=== PATIENT | female | born 1985 | race Caucasian/White ===

== ENCOUNTER → 2020-06-12 10:17 | Outpatient (BNVA) | payer SELFPAY | PROVIDERS: Visit Provider Family Medicine | DX: Z13.6 Encounter for screening for cardiovascular disorders (principal); Z13.1 Encounter for screening for diabetes mellitus; R45.0 Nervousness; Z83.3 Family history of diabetes mellitus; N64.52 Nipple discharge | CPT/HCPCS: 80053; 80061; 83036; 84146 ==

== ENCOUNTER 2021-07-18 16:00 | Emergency (ER) | payer SELFPAY ==
[2021-07-18 16:08] VITALS: BP 152/94; PULSE 118; RESP 20; TEMP 36.9; O2SAT 98
--- NOTE | 2021-07-18 16:20 | ED_ITS ---
HPI - Extremity Problem General: Chief complaint: Extremity Problem,Nontraumatic Stated complaint: Redness and burning in Rt Leg Time Seen by Provider: 07/18/21 16:07 History of Present Illness: Patient presents with redness to the right sawyer. This started yesterday and has gotten slightly larger in area size. He is tender to the touch. Patient denies any recent injury. Denies any other illness presently. Associated symptoms: Deny chest pain, fever(s) or rash Review of Systems Const: Denies: fever(s), chills or body aches Eyes: Denies: eye discomfort ENMT: Denies: throat pain Card: Denies: chest pain Resp: Denies: dyspnea GI: Denies: abdominal pain, nausea or vomiting Skin/Breast: Reports: erythema (Right sawyer since yesterday) and skin tenderness; Denies: rash Neuro: Denies: headache(s) Psych: Denies: depression or suicidal ideation PFS ED PFSH: Medical History (Updated 07/18/21 @ 16:20 by PATRICE Ariza) ADHD Anxiety Bipolar 1 disorder Depression Family history of breast cancer Psychiatric care PTSD (post-traumatic stress disorder) Schizophrenia Family History Family/Other Cancer Breast cancer Social History Smoking and tobacco status: former smoker Alcohol intake: former Year of sobriety/quit date alcohol: 2020 Caregiver/support person: Yes Physical Exam Const: COMMON NORMALS: no acute distress, patient oriented x3 and alert HENMT: COMMON NORMALS: normocephalic and external ears normal HEAD & SCALP: normocephalic EXTERNAL EAR: Yes external ears normal Eye: COMMON NORMALS: EOMs intact bilaterally Neck/C-Spine: COMMON NORMALS: no JVD Resp: COMMON NORMALS: normal respiratory effort and No use of accessory muscles Cardio: COMMON NORMALS: no JVD RATE: tachycardic GI: INSPECTION: Yes normal to inspection Extremity: COMMON NORMALS: normal to inspection and full ROM Neuro: COMMON NORMALS: patient oriented x3 SENSORIUM/ORIENTATION: Yes alert Psych: COMMON NORMALS: mental status grossly normal Skin: COMMON NORMALS: no rashes or lesions noted GENERAL SKIN EXAM: no rashes or lesions noted OTHER: Slight area of redness to right sawyer consistent with superficial thro mbophlebitis. There is no swelling to the calf or other areas. This is in the lower aspect of sawyer is probably vertically 4 inches long by 1/2 inches wide blanches to touch and is tender. Course Vital Signs: Vital signs: Vital Signs Temperature 98.4 F 07/18/21 16:08 Pulse Rate 118 H 07/18/21 16:08 Respiratory Rate 20 H 07/18/21 16:08 Blood Pressure 152/94 07/18/21 16:08 Pulse Oximetry 98 07/18/21 16:08 MDM - Extremity (Nontraumatic) Medical Decision Making Patient has redness to her right sawyer consistent with a superficial thrombophlebitis presentation. Patient with no known injury and no swelling to the area. Area is tender to touch. Discharge Plan Discharge Patient Disposition: Home Clinical Impression: Superficial thrombophlebitis Condition: Stable Prescriptions: New prednisone 20 mg tablet 20 mg PO DAILY Qty: 7 0RF cephalexin 500 mg capsule 500 mg PO Q8H 7 Days Qty: 21 0RF No Action buspirone 10 mg tablet 10 mg PO BID 30 Days Qty: 60 2RF Rx Instructions: 340B lithium carbonate 300 mg capsule 300 mg PO BID 30 Days Qty: 60 2RF Rx Instructions: 340B prednisone 20 mg tablet 40 mg PO .q AM 5 Days Qty: 10 0RF cyclobenzaprine 5 mg tablet 10 mg PO TID MDD 6 tabs PRN (Reason: muscle spasm) Qty: 30 1RF Rx Instructions: 1 or 2 tabs as needed Discharge Orders: Discharge ED (Routine); Ordered 07/18/21 Ordered By: Dimitri Mosqueda Discharge Diet: Usual diet Discharge Activity: Resume usual activity Patient Instructions: Superficial Thrombophlebitis (ED) Activity Restrictions/Additional Instructions: Follow-up with medical provider as directed. Take medications as prescribed. Return to the ER or your medical provider if condition worsens. Please read and understand discharge instructions. If any questions ask please. Coding Level of Care Code ED [employer]r for [employer] Fwd Exam Comprehensive
--- NOTE | 2021-07-18 17:05 | USR_ITS ---
PROCEDURE INFORMATION: Exam: US Duplex Right Lower Extremity Veins, Limited Exam date and time: 07/18/2021 5:21 PM Age: 35 years old Clinical indication: Pain; Leg, lower; Right; Additional info: Redness and swelling, R/O dvt TECHNIQUE: Imaging protocol: Real-time Duplex ultrasound of the Right Lower Extremity with 2-D aguilera scale, color Doppler flow and spectral waveform analysis with image documentation. Limited exam was focused on the right lower extremity veins. COMPARISON: No relevant prior studies available. FINDINGS: Right deep veins: Unremarkable. The common femoral, femoral, proximal profunda femoral and popliteal veins are patent without thrombus. Normal Doppler waveforms. Normal compressibility and/or augmentation response. Right superficial veins: Unremarkable. Saphenofemoral junction is patent without thrombus. Soft tissues: Unremarkable. US/[place] [id number] IMPRESSION: No evidence of deep vein thrombosis.
[2021-07-18] MEDS: ibuprofen 600 mg Tablet PO (17:56)
[2021-07-18] MEDS: cephALEXin 500 mg Capsule PO (17:56)
[2021-07-18 18:05] VITALS: BP 139/92; PULSE 105; O2SAT 95
== END 2021-07-18 18:06 | disposition home or self-care (01) ==
PROVIDERS: Emergency Provider Nurse Practitioner Family
DX: I80.01 Phlebitis and thrombophlebitis of superficial vessels of right lower extremity (principal); Z87.891 Personal history of nicotine dependence; M79.89 Other specified soft tissue disorders; M79.661 Pain in right lower leg
CPT/HCPCS: 93971; 99283

== ENCOUNTER 2023-04-20 10:51 | Emergency (ER) | payer SELFPAY ==
[2023-04-20 10:52] VITALS: BP 145/102; PULSE 94; RESP 16; TEMP 36.8; O2SAT 100; BMI 45.7
[2023-04-20 11:26] LABS: Basophils % 0.4 %; Eosinophils # 0.1 10^3/uL (0.0-0.8); Eosinophils % 1.2 %; Hematocrit 43.1 % (36-47); Lymphocytes # 3.6 10^3/uL (0.8-4.8); Lymphocytes % 32.3 %; Mean Corpuscular HGB Conc 32.3 g/dL (30-55); Mean Corpuscular Hemoglobin 28.7 pg (27-33); Mean Corpuscular Volume 88.9 fl (85-98); Mean Platelet Volume 9.5 fL (7.4-10.4); Monocytes # 0.6 10^3/uL (0.2-0.9); Monocytes % 5.3 %; Neutrophils # 6.75 10^3/uL (1.8-7.7); Neutrophils % 60.4 %; Nucleated Red Blood Cells % 0 %; Platelet Count 382 10^3/cmm (157-399); Red Blood Count 4.85 10^6/uL (3.85-5.65); Red Cell Distribution Width 13.6 % (12.1-15.1); White Blood Count 11.15 10^3/uL (3.29-11.43)
--- NOTE | 2023-04-20 11:28 | W.ED.ABDPA2 ---
HPI - Abdominal Pain General: Chief Complaint: Abdominal Pain Stated Complaint: abd pain Time Seen by Provider: 04/20/23 11:21 Source: patient Mode of arrival: ambulatory History of Present Illness: 37-year-old female reports right upper quadrant pain for the last week no fever sweats chills no dysuria urgency or frequency nausea and vomiting at times. She states it actually gets better after vomiting. She denies any hematemesis or coffee-ground emesis. MD elicited complaint: abdominal pain Onset (ago): week(s) Pain Consistency: intermittent Location: RUQ Severity: moderate Quality: cramping Exacerbating factors: eating Relieving factors: vomiting Associated Symptoms: Reports GI cramping, nausea, poor appetite and vomiting; Denies anorexia, belching, bloating, change in bowel habits, change in stool character, chills, coffee ground emesis, constipation, diarrhea, dyspepsia, dysuria, excessive flatus, fever(s), heartburn, hematochezia, hematuria, hematemesis, fecal incontinence, loose stools, melena, syncope and other Related Data: Date of Last Menstrual Period: 04/12/23 Review of Systems Const: Denies: fever(s) or chills Card: Denies: chest pain or syncope Resp: Denies: dyspnea GI: Reports: nausea, vomiting and GI cramping; Denies: abdominal pain, hematemesis, coffee ground emesis, heartburn, diarrhea, constipation, bloating, belching, excessive flatus, fecal incontinence, change in bowel habits, change in stool character, hematochezia, melena or other : Denies: dysuria, urinary frequency, urinary urgency or hematuria Musc: Denies: neck pain or back pain Skin/Breast: Denies: rash PFSH ED PFSH: Medical History Psychiatric care Family history of breast cancer PTSD (post-traumatic stress disorder) ADHD Schizophrenia Depression Bipolar 1 disorder Anxiety Family History Family/Other Cancer Breast cancer Social History Smoking and tobacco/nicotine status: former use of tobacco/nicotine Alcohol intake: former Year of sobriety/quit date alcohol: 2020 Substance/Drug Use: former Date of last use: 11/2019 Caregiver/support person: Yes Female Reproductive History: Date of last menstrual period: 04/12/23 Physical Exam Const: COMMON NORMALS: no acute distress GENERAL APPEARANCE: cooperative and comfortable ORIENTATION/CONSCIOUSNESS: Yes awake, Yes oriented to person, Yes oriented to place and Yes oriented to time HENMT: COMMON NORMALS: normocephalic, atraumatic and hearing grossly normal bilaterally HEAD & SCALP: normocephalic and atraumatic Resp: COMMON NORMALS: normal respiratory effort, No retractions, No use of accessory muscles and clear to auscultation bilaterally AUSCULTATION: clear to auscultation bilaterally Cardio: COMMON NORMALS: regular rate, regular rhythm and No murmurs present (Cardio) RATE: regular rate RHYTHM: regular rhythm GI: COMMON NORMALS: Soft to palpation and No hepatosplenomegaly present AUSCULTATION: Yes normoactive bowel sounds PALPATION: Yes Soft to palpation, No Tenderness to palpation present (GI), No Guarding due to palpation present (GI) and Yes No hepatosplenomegaly present Extremity: COMMON NORMALS: normal to inspection, capillary refill normal, no clubbing, cyanosis or edema, no calf tenderness and no pedal edema Neuro: SENSORIUM/ORIENTATION: Yes oriented to person, Yes oriented to place and Yes oriented to time Skin: COMMON NORMALS: no rashes or lesions noted GENERAL SKIN EXAM: no rashes or lesions noted Course Vital Signs: Vital signs: Vital Signs Temperature 98.3 F 04/20/23 10:52 Pulse Rate 94 04/20/23 10:52 Respiratory Rate 16 04/20/23 10:52 Blood Pressure 145/102 04/20/23 10:52 Pulse Oximetry 100 04/20/23 10:52 Oxygen Delivery Me thod Room Air 04/20/23 10:52 MDM - Abdominal Pain Medical Decision Making Alk phos very slightly elevated other liver functions and T. bili are normal white count normal there is some hepatic congestion they state is consistent with possible hepatitis. Patient not jaundiced. She may have a viral infection triggering this. She is somewhat improved. We are going to give her some Protonix. If she has persistent symptoms follow-up with primary care. Hepatitis panel not done at this time because there is no significant elevation of liver enzymes. Medical Records I reviewed the patient's medical records. Lab Data I reviewed the patient's lab results. 04/20/23 11:12 04/20/23 11:12 Labs/Radiology: Laboratory Results WBC 11.15 10^3/uL (3.29-11.43) 04/20/23 11:12 RBC 4.85 10^6/uL (3.85-5.65) 04/20/23 11:12 Hgb 13.90 g/dL (11.27-16.99) 04/20/23 11:12 Hct 43.1 % (36-47) 04/20/23 11:12 MCV 88.9 fl (85-98) 04/20/23 11:12 MCH 28.7 pg (27-33) 04/20/23 11:12 MCHC 32.3 g/dL (30-55) 04/20/23 11:12 RDW 13.6 % (12.1-15.1) 04/20/23 11:12 Plt Count 382 10^3/cmm (157-399) 04/20/23 11:12 MPV 9.5 fL (7.4-10.4) 04/20/23 11:12 Neut % (Auto) 60.4 % 04/20/23 11:12 Lymph % (Auto) 32.3 % 04/20/23 11:12 [place] % (Auto) 5.3 % 04/20/23 11:12 Eos % (Auto) 1.2 % 04/20/23 11:12 Baso % (Auto) 0.4 % 04/20/23 11:12 Neut # (Auto) 6.75 10^3/uL (1.8-7.7) 04/20/23 11:12 Lymph # (Auto) 3.6 10^3/uL (0.8-4.8) 04/20/23 11:12 [place] # (Auto) 0.6 10^3/uL (0.2-0.9) 04/20/23 11:12 Eos # (Auto) 0.1 10^3/uL (0.0-0.8) 04/20/23 11:12 Baso # (Auto) 0.0 10^3/uL (0.0-0.1) 04/20/23 11:12 Nucleated RBC % (auto) 0 % 04/20/23 11:12 Nucleated RBCs # 0.0 /100WBC 04/20/23 11:12 Sodium 139 mmol/L (136-145) 04/20/23 11:12 Potassium 4.1 mmol/L (3.5-5.1) 04/20/23 11:12 Chloride 101 mmol/L (98-107) 04/20/23 11:12 Carbon Dioxide 26 mmol/L (22-29) 04/20/23 11:12 Anion Gap 16.1 (5-19) 04/20/23 11:12 BUN 8 mg/dL (6-20) 04/20/23 11:12 Creatinine 0.6 mg/dL (0.5-0.9) 04/20/23 11:12 GFR Calculation 113.8 mL/min (90-130) 04/20/23 11:12 Glucose 90 mg/dL (65-115) 04/20/23 11:12 Calculated Osmolality 286 mOsm/kg (285-295) 04/20/23 11:12 Calcium 9.0 mg/dL (8.5-10.5) 04/20/23 11:12 Total Bilirubin 0.2 mg/dL (0.15-1.2) 04/20/23 11:12 AST 17 U/L (0-32) 04/20/23 11:12 ALT 22 U/L (0-33) 04/20/23 11:12 Alkaline Phosphatase 111 U/L (35-105) H 04/20/23 11:12 Total Protein 8.0 g/dL (6.6-8.7) 04/20/23 11:12 Albumin 3.9 g/dL (3.5-5.2) 04/20/23 11:12 Globulin 4.1 g/dL (1.3-4.6) 04/20/23 11:12 Lipase 25 U/L (13-60) 04/20/23 11:12 HCG, Qual Negative (Negative) 04/20/23 11:12 Urine Color Yellow (Yellow) 04/20/23 12:05 Urine Appearance Sl hazy (CLEAR) A 04/20/23 12:05 Urine pH 7 (5-7) 04/20/23 12:05 Ur Specific [place] 1.010 (1.005-1.030) 04/20/23 12:05 Urine Protein Neg (Negative) 04/20/23 12:05 Urine Glucose (UA) Norm (Normal) 04/20/23 12:05 Urine Ketones Negative (Negative) 04/20/23 12:05 Urine Blood Neg (Negative) 04/20/23 12:05 Urine Nitrate Negative (Negative) 04/20/23 12:05 Urine Bilirubin Neg (Negative) 04/20/23 12:05 Urine Urobilinogen Neg mg/dL (Negative) 04/20/23 12:05 Ur Leukocyte Esterase Negative (Negative) 04/20/23 12:05 Urine RBC 0-4 /hpf (0-2) H 04/20/23 12:05 Urine WBC 0-4 /hpf (0-5) H 04/20/23 12:05 Ur Squamous Epith Cells 5-10 /hpf (0-5) H 04/20/23 12:05 Amorphous Sediment Not Reportable 04/20/23 12:05 Urine Bacteria 1+ /hpf (NONE) H 04/20/23 12:05 Urine Mucus Trace /hpf 04/20/23 12:05 All radiology interpretation(s) finalized by discharge Discharge Plan Discharge Patient Disposition: Home Clinical Impression: Abdominal pain Condition: Stable Prescriptions: New Protonix 40 mg tablet,delayed release (DR/EC) 40 mg PO BID 10 Days Qty: 45 0RF Rx Instructions: 1 p.o. twice daily x 14 days then 1 daily No Action buspirone 10 mg tablet 10 mg PO BID 30 Days Qty: 60 2RF Rx Instructions: 340B lithium carbonate 300 mg capsule 300 mg PO BID 30 Days Qty: 60 2RF Rx Instructions: 340B prednisone 20 mg tablet 40 mg PO .q AM 5 Days Qty: 10 0RF cyclobenzaprine 5 mg tablet 10 mg PO TID MDD 6 tabs PRN (Reason: muscle spasm) Qty: 30 1RF Rx Instructions: 1 or 2 tabs as needed prednisone 20 mg tablet 20 mg PO DAILY Qty: 7 0RF Discharge Orders: Discharge ED (Routine); Ordered 04/20/23 Ordered By: Jesus Benson Discharge Diet: Usual diet Discharge Activity: Resume usual activity Patient Instructions: Diet for Stomach Ulcers and Gastritis (ED), Abdominal Pain (ED), Opioid Safety, Pain Management Activity Restrictions/Additional Instructions: Thank you for choosing [facility] for your healthcare needs today. Please realize this is an emergency room and that we are providing you with a medical screening exam and this may not be complete and all inclusive of all the testing and or work up that you may need to determine your ailment or severity of your illness. It is very important that you follow up as instructed or that you return to the Emergency Department should you have concerns or if your condition changes or worsens in any way. You are seen in the emergency room for abdominal pain given your description of the pain suspect this is related to your stomach. I recommend you start pantoprazole twice daily. Liver functions done today did not show any clinically significant abnormality had a very mild elevation of your alk phosphatase which is not likely to be clinically significant. Your urine and white count did not show any clinically significant abnormalities. 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
[2023-04-20 11:46] LABS: HCG, Serum Qual Negative (Negative)
[2023-04-20 11:52] LABS: Alanine Aminotransferase 22 U/L (0-33); Albumin Level 3.9 g/dL (3.5-5.2); Alkaline Phosphatase 111 U/L (35-105); Anion Gap 16.1 (5-19); Aspartate Amino Transferase 17 U/L (0-32); Blood Urea Nitrogen 8 mg/dL (6-20); Carbon Dioxide 26 mmol/L (22-29); Chloride 101 mmol/L (98-107); Globulin 4.1 g/dL (1.3-4.6); Glomerular Filtration Rate 113.8 mL/min (90-130); Glucose 90 mg/dL (65-115); Lipase 25 U/L (13-60); Osmolality Calculated 286 mOsm/kg (285-295); Potassium 4.1 mmol/L (3.5-5.1); Sodium 139 mmol/L (136-145); Total Bilirubin 0.2 mg/dL (0.15-1.2)
--- NOTE | 2023-04-20 12:04 | US_ITS ---
WS: [id number] ULTRASOUND ABDOMEN LIMITED CLINICAL INFORMATION: Right upper quadrant abdominal pain COMPARISON: None. FINDINGS: Liver Size: Normal. Craniocaudal length: 11.9 cm. Echogenicity: Coarse Surface nodularity: None. Mass (size and location): None. Bile ducts Intrahepatic ducts: Normal. Common bile duct diameter: 0.4 cm. Gallbladder Normal. Gallstones: None. Gallbladder sludge: None. Gallbladder wall thickening: None. Pericholecystic fluid: None. Sonographic [place] sign: Absent. Pancreas Not well visualized Right kidney: Normal. Hydronephrosis: None. Size: 10.8 cm x 4.4 cm x 5.0 cm. Abdominal aorta and IVC Visualized portions are normal. Ascites: None. IMPRESSION: 1. Mild diffuse fatty infiltration of the liver. Recommend correlation with liver function tests. Ec hogenic portal triads nonspecific but can be seen with hepatitis. 2. Normal gallbladder. 3. Normal common bile duct. 4. No hydronephrosis in the RIGHT kidney.
[2023-04-20 12:52] LABS: Add Urine Microscopic? YES; Bilirubin Urine Neg (Negative); Blood Urine Neg (Negative); Glucose Urine UA Norm (Normal); Ketones Urine Negative (Negative); Leukocyte Esterase Urine Negative (Negative); Nitrate Urine Negative (Negative); Protein Urine Neg (Negative); Urine Appearance SL Hazy (CLEAR); Urine Color Yellow (Yellow); Urobilinogen Urine Neg (Negative); pH Urine 7 (5-7)
[2023-04-20 12:53] LABS: WBC Urine 0-4 /hpf (0-5)
[2023-04-20 12:54] LABS: Add Urine Culture? No; Bacteria Urine 1+ /hpf; Mucus Urine TRACE /hpf; RBC Urine 0-4 /hpf (0-2)
== END 2023-04-20 15:16 | disposition home or self-care (01) ==
PROVIDERS: Emergency Medicine; Emergency Provider Family Medicine
DX: R10.11 Right upper quadrant pain (principal); Z87.891 Personal history of nicotine dependence
CPT/HCPCS: 36415; 76705; 80053; 81001; 83690; 84703; 85025; 99284

== ENCOUNTER 2023-06-29 11:46 | Outpatient (CLI) | payer MEDICAID, SELFPAY ==
--- NOTE | 2023-06-29 11:48 | MM_ITS ---
WS: [id number] BILATERAL 3D TOMOSYNTHESIS DIGITAL DIAGNOSTIC MAMMOGRAPHY WITH CAD CLINICAL INFORMATION: BR PAIN/POLY BR DISCHARGE HISTORY: Bilateral breast discharge. Kartik color. COMPARISON: None. TECHNIQUE: Bilateral CC, MLO, and ML views. FINDINGS: Scattered fibroglandular densities bilaterally. No suspicious focal mass, asymmetry, calcifications, or architectural distortion. Bilateral ultrasoun d is pending for breast discharge. ULTRASOUND BREAST BILATERAL TECHNIQUE: Ultrasound bilateral breast focused area of concern. CLINICAL INFORMATION: BR PAIN/POLY BR DISCHARGE FINDINGS: RIGHT BREAST: Ultrasound RIGHT breast subareolar. Incidental mild to moderate ductal ectasia. No susp icious lesions. LEFT BREAST: Ultrasound LEFT breast subareolar. Prominent ductal ectasia with internal debris. No vis ualized intraductal lesions. No suspicious lesions to target for biopsy. Recommend annual screen mammography age 40 IMPRESSION: MM/[place] [id number] BI-RADS: 2-Benign FOLLOW UP: Age 42 Recommend annual screening mammography age 42
== END 2023-06-29 11:47 | disposition home or self-care (01) ==
LOC: RAD 11:46
PROVIDERS: Visit Provider Advanced Practice Midwife
DX: N64.4 Mastodynia (principal); N60.42 Mammary duct ectasia of left breast; N60.41 Mammary duct ectasia of right breast
CPT/HCPCS: 76642; 77062; G0279

== ENCOUNTER → 2023-07-11 07:49 | Outpatient (BNVA) | payer MEDICAID, SELFPAY | PROVIDERS: Visit Provider Obstetrics & Gynecology | DX: R87.619 Unspecified abnormal cytological findings in specimens from cervix uteri (principal) | CPT/HCPCS: 81025; 88305 ==

== ENCOUNTER 2025-02-24 01:50 | Emergency (ER) | payer MEDICAID, SELFPAY ==
[2025-02-24 02:14] VITALS: BP 124/85; PULSE 105; RESP 20; TEMP 36.5; O2SAT 99; BMI 31.1
[2025-02-24 02:21] VITALS: BP 124/85; PULSE 105; RESP 20; TEMP 36.5; O2SAT 99
[2025-02-24 02:36] LABS: Glucose Urine UA Negative (Normal); Nitrate Urine Negative (Negative); Specific Gravity, Urine 1.024 (1.005-1.030)
[2025-02-24 02:41] LABS: Add Urine Microscopic? YES
--- NOTE | 2025-02-24 02:46 | CTR_ITS ---
PROCEDURE INFORMATION: Exam: CT Abdomen And Pelvis Without Contrast Exam date and time: 02/24/2025 2:53 AM Age: 39 years old Clinical indication: Abdominal pain; Right; RT flank pain with hematuria TECHNIQUE: Imaging protocol: Computed tomography of the abdomen and pelvis without contrast. Radiation optimization: All CT scans at this facility use at least one of these dose optimization techniques: automated exposure control; mA and/or kV adjustment per patient size (includes targeted exams where dose is matched to clinical indication); or iterative reconstruction. COMPARISON: US gall bladder [id number] 04/20/2023 11:42 AM RADIATION DOSE METRICS: Total DLP (mGy-cm): 685.31 FINDINGS: Liver: Normal. No mass. Gallbladder and biliary ducts: Normal. No calcified stones. No ductal dilation. Pancreas: Normal. No ductal dilation. Spleen: Normal. No splenomegaly. Adrenal glands: Normal. No mass. Kidneys and ureters: Right collecting system hydroureteronephrosis. 2 mm right distal ureter stone. Right renal parenchyma edema. Additional punctate nonobstructing bilateral kidney stones measuring 2 mm diameter each. Stomach and bowel: Unremarkable. No obstruction. No mucosal thickening. Appendix: Normal appendix. Intraperitoneal space: Unremarkable. No free air. No significant fluid collection. Vasculature: Unremarkable. No abdominal aortic aneurysm. Lymph nodes: Unremarkable. No enlarged lymph nodes. Urinary bladder: Unremarkable as visualized. Reproductive: Unremarkable as visualized. Bones/joints: Unremarkable. No acute fracture. Soft tissues: Unremarkable. CT/CT kidney stone [id number] IMPRESSION: Right renal obstructive uropathy secondary to small distal ureterolithiasis.
[2025-02-24 02:55] LABS: HCG, Serum Qual Negative (Negative)
[2025-02-24 03:08] VITALS: BP 108/73; PULSE 85; O2SAT 99
--- NOTE | 2025-02-24 03:16 | W.ED.FEMALGU ---
HPI - Female Genitourinary General: Chief complaint: Urogenital-Female Stated complaint: Can't hold pee\Rt Side Back Pain Time Seen by Provider: 02/24/25 02:16 History of Present Illness: Patient is a 39-year-old female who presents with symptoms of dysuria described as , along with suprapubic pressure. She also notes episodes of urinary incontinence where urine gushes out without sensation. Approximately one hour prior to arrival, she developed acute right flank pain that was severe enough to cause vomiting. This prompted her to seek emergency care. The patient has a history of kidney stones and states the current pain feels different from her previous stone episodes. She attempted self-treatment with [id number] Azo and reports taking some antibiotics she had (source not specified), as well as drinking cranberry juice yesterday, with temporary improvement followed by acute worsening. She denies hematuria, though is taking Azo which discolors urine. She denies diarrhea, vaginal bleeding, and possibility of . Related Data Home Medications ?Medication ?Instructions ?Recorded ?Confirmed bupropion HCl 150 mg tablet,12 hr 150 mg PO DAILY 07/11/23 09/11/24 sustained-release cholecalciferol (vitamin D3) 1,250 PO 07/11/23 09/11/24 mcg (50,000 unit) capsule metformin 500 mg tablet 500 mg PO DAILY 07/11/23 09/11/24 ondansetron 8 mg disintegrating 8 mg PO Q12H 07/11/23 09/11/24 tablet Previous Rx's ?Medication ?Instructions ?Recorded lithium carbonate 300 mg capsule 300 mg PO BID 30 days #60 caps 06/12/20 hydrocodone 5 mg-acetaminophen 325 1 tab PO TID PRN pain #7 tabs 02/24/25 mg tablet ketorolac 10 mg tablet 10 mg PO TID PRN pain #10 tabs 02/24/25 ondansetron 4 mg disintegrating 4 mg PO Q6H PRN nausea and 02/24/25 tablet vomiting #14 tabs sulfamethoxazole 800 1 tab PO BID #10 tabs 02/24/25 mg-trimethoprim 160 mg tablet (Bactrim DS) Allergies Allergy/AdvReac Type Severity Reaction Status Date / Time No Known Allergies Allergy Verified 09/11/24 08:25 [facility] ED PFS: Medical History Psychiatric care Family history of breast cancer PTSD (post-traumatic stress disorder) ADHD Schizophrenia Depression Bipolar 1 disorder Anxiety Family History Family/Other No problems noted. Mother Breast cancer Diabetes Heart disease Hypercholesteremia Hypertension Uterine cancer Grandmother Breast cancer Father Diabetes Sister Ovarian cancer Denies family history of Colon cancer Prostate cancer Thyroid disease Stroke Physical Exam Const: COMMON NORMALS: no acute distress GENERAL APPEARANCE: cooperative; not ill appearing and not frail appearing HENMT: COMMON NORMALS: normocephalic, atraumatic and Normal external nose present HEAD & SCALP: normocephalic and atraumatic FACE & SINUS: normal facial exam and face symmetric NOSE: Normal external nose present Eye: COMMON NORMALS: Equal, round and reactive pupils present and EOMs intact bilaterally PUPIL: Yes Equal, round and reactive pupils present Neck/C-Spine: GENERAL: Yes trachea midline Chest: CHEST: Yes Symmetrical chest wall rise Resp: COMMON NORMALS: normal respiratory effort, No retractions, No use of accessory muscles and clear to auscultation bilaterally AUSCULTATION: clear to auscultation bilaterally Cardio: COMMON NORMALS: regular rate and regular rhythm RATE: regular rate RHYTHM: regular rhythm GI: COMMON NORMALS: Normal to inspection, nondistended, normoactive bowel sounds present and Soft to palpation PALPATION: Yes Soft to palpation and Yes Tenderness to palpation present (GI) Details: RLQ : BLADDER/KIDNEY EXAM: Yes CVA tenderness on the right Back/Pelvis: GENERAL BACK: Yes CVA tenderness Extremity: COMMON NORMALS: no pedal edema Neuro: PRECIOUS COMA SCALE: document GCS findings [place] coma scale eye opening: Spontaneous Precious coma scale verbal response: Orientated [place] coma scale motor response: Obey commands Precious coma scale total score: 15 SENSORY EXAM: Yes extremities (intact) Psych: COMMON NORMALS: speech normal SPEECH: Yes normal speech Skin: COMMON NORMALS: no rashes or lesions noted GENERAL SKIN EXAM: no rashes or lesions noted Course Vital Signs: Vital signs: Vital Signs Temperature 97.7 F 02/24/25 02:21 Pulse Rate 85 02/24/25 03:08 Respiratory Rate 20 H 02/24/25 02:21 Blood Pressure 108/73 02/24/25 03:08 Pulse Oximetry 99 02/24/25 03:08 Oxygen Delivery Me thod Room Air 02/24/25 02:21 MDM - Female Medical Decision Making microscopic hematuria without infection noticed on urinalysis. CT reveals right renal obstructive uropathy due to a distal ureter 2 mm stone. She is given Toradol, Percocet, Zofran here. Will cover with antibiotics, she used antibiotics at home, and might have a partially treated UTI. Stable for discharge. Return for worsening symptoms. Lab Data Radiology Impressions Abdomen/Pelvis CT 02/24/25 02:46 IMPRESSION: Right renal obstructive uropathy secondary to small distal ureterolithiasis. Laboratory Results HCG, Qual Negative (Negative) 02/24/25 02:26 Urine Color Yellow (Yellow) 02/24/25 02: Urine Appearance Clear (CLEAR) 02/24/25 02:26 Urine pH 5.5 (5-7) 02/24/25 02:26 Ur Specific [place] 1.024 (1.005-1.030) 02/24/25 02:26 Urine Protein Trace (Negative) A 02/24/25 02:26 Urine Glucose (UA) Negative (Normal) 02/24/25 02:26 Urine Ketones Negative (Negative) 02/24/25 02:26 Urine Blood Non-haemolysed trace (Negative) 02/24/25 02:26 Urine Nitrate Negative (Negative) 02/24/25 02:26 Urine Bilirubin Negative (Negative) 02/24/25 02:26 Urine Urobilinogen 0.2 mg/dL (Negative) 02/24/25 02:26 Ur Leukocyte Esterase Negative (Negative) 02/24/25 02:26 Urine RBC 6-10 /hpf (0-2) 02/24/25 02:26 Urine WBC 0-5 /hpf (0-5) 02/24/25 02:26 Ur Squamous Epith Cells 0-5 /hpf (0-5) 02/24/25 02:26 Amorphous Sediment Not Reportable 02/24/25 02:26 Urine Bacteria None seen /hpf (NONE) 02/24/25 02:26 Hyaline Casts 2.05 /lpf 02/24/25 02:26 All radiology interpretation(s) finalized by discharge Discharge Plan Discharge Patient Disposition: Home Clinical Impression: Ureterolithiasis Condition: Stable Prescriptions: New ketorolac 10 mg tablet 10 mg PO TID PRN (Reason: pain) Qty: 10 0RF ondansetron 4 mg tablet,disintegrating 4 mg PO Q6H PRN (Reason: nausea and vomiting) Qty: 14 0RF hydrocodone-acetaminophen 5-325 mg tablet 1 tab PO TID PRN (Reason: pain) Qty: 7 0RF sulfamethoxazole-trimethoprim [Bactrim DS] 800-160 mg tablet 1 tab PO BID Qty: 10 0RF No Action lithium carbonate 300 mg capsule 300 mg PO BID 30 Days Qty: 60 2RF Rx Instructions: 340B cholecalciferol (vitamin D3) 1,250 mcg (50,000 unit) capsule PO metformin 500 mg tablet 500 mg PO DAILY bupropion HCl 150 mg tablet sustained-release 12 hr 150 mg PO DAILY ondansetron 8 mg tablet,disintegrating 8 mg PO Q12H Discharge Orders: Discharge ED (Routine); Ordered 02/24/25 Ordered By: Stevenson Miguel Patient Instructions: Kidney Stones (ED), Opioid Safety, Pain Management, Patient Portal & Alex Instructions Activity Restrictions/Additional Instructions: Stay hydrated. Medication as directed. Antibiotics as directed. Return for fever despite antibiotics, vomiting liquids or medications, inability to control pain, any other concerning symptoms. Strain your urine. Follow-up with your doctor. 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
[2025-02-24 03:36] VITALS: RESP 16; O2SAT 98
[2025-02-24] MEDS: oxyCODONE-APAP 5-325 mg Tablet 2 TAB PO (03:36)
[2025-02-24] MEDS: ondansetron hcl ODT 4 mg Tab 8 MG PO (03:37)
[2025-02-24 03:51] VITALS: BP 118/78; PULSE 94; O2SAT 99
[2025-02-24 04:01] LABS: Neisseria Gonorrhea NOT DETECTED (Negative)
== END 2025-02-24 03:52 | disposition home or self-care (01) ==
PROVIDERS: Emergency Provider Emergency Medicine
DX: N20.1 Calculus of ureter (principal); Z87.442 Personal history of urinary calculi; Z79.84 Long term (current) use of oral hypoglycemic drugs
CPT/HCPCS: 74176; 81001; 84703; 87491; 87591; 96372; 99284; J1885; J9999; Q0162